=== PATIENT | female | born 1955 | race Caucasian/White ===

== ENCOUNTER 2018-03-08 12:36 | Day surgery (SDC) | payer OTHER | END 2018-03-08 16:45 | disposition home or self-care (01) | LOC: GIL 12:36 | DX: K29.50 Unspecified chronic gastritis without bleeding (principal); K44.9 Diaphragmatic hernia without obstruction or gangrene; I10 Essential (primary) hypertension; E78.5 Hyperlipidemia, unspecified | CPT/HCPCS: 43239; 88305; 88312 ==